=== PATIENT | female | born 2000 | race Caucasian/White ===

== ENCOUNTER → 2019-11-27 14:22 | Outpatient (BNVA) | payer SELFPAY | PROVIDERS: Family Provider Nurse Practitioner Family; Visit Provider Obstetrics & Gynecology | DX: E28.2 Polycystic ovarian syndrome (principal); N83.8 Other noninflammatory disorders of ovary, fallopian tube and broad ligament; N64.52 Nipple discharge | CPT/HCPCS: 83036; 84146; 84402; 84403; 84443; 85025 ==

== ENCOUNTER 2019-12-25 19:52 | Emergency (ER) | payer MEDICAID, SELFPAY ==
[2019-12-25 20:01] VITALS: BP 125/69; PULSE 90; RESP 14; TEMP 36.4; O2SAT 98; BMI 31.9
[2019-12-25 20:14] VITALS: BP 106/78; PULSE 98; RESP 16; O2SAT 97
--- NOTE | 2019-12-25 20:15 | US_ITS ---
WS: [id number] ULTRASOUND EARLY TECHNIQUE: Transabdominal sonography of the pelvis was performed. Followed by transvaginal sonography to better evaluate the uterus and ovaries. CLINICAL INFORMATION: Pain LMP: 11/13/2019 Beta hCG: Unknown. COMPARISON: None. FINDINGS: UTERUS AND GESTATIONAL SAC Intrauterine gestations: Single interuterine gestation with pole. Suggestion of bicornate uterine configuration with one horn containing gestational sac and adjacent horn containing echogenic debris likely hemorrhagic blood pro ducts. Presumed blood products measure 3.0 x 3.3 x 4.2 cm Estimated gestational age: 6w1d Yolk sac: 0.3 cm. [place] rump length (CRL): 0.5 cm. heart motion: 129 BPM. a OVARIES Right ovary: Normal. Left ovary: Normal. FREE FLUID None. 2. Estimated gestational age: 6w1d 3. 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 Recommend short interval follow-up for surveil latrice. 4. Normal adnexa. US/US OB <=14 wk fetus w transvag IMPRESSION: 1. Single live intrauterine .
--- NOTE | 2019-12-25 20:20 | W.ED.FEMALGU ---
HPI - Female Genitourinary General: Chief complaint: Vaginal Bleeding Stated complaint: bleeding/cramping preg Time Seen by Provider: 12/25/19 20:15 Source: patient Mode of arrival: ambulatory Limitations: no limitations History of Present Illness: HPI Narrative: Shana is a very nice 19-year-old female who comes in complaining of vaginal bleeding and being . Apparently the patient was seen at [facility] and referred here for ultrasound. The patient believes herself to be 3 to 5 weeks along by dates. She is having bleeding that just began this a.m. and is small in amount. No pelvic exam was done at the [facility]. Patient states he has had minimal if any pain. There is been no described associated nausea or vomiting, fevers or chills, urinary symptoms or otherwise. Associated symptoms: Deny abdominal pain, headache(s), nausea or syncope Related Data: : 1 Review of Systems Const: Denies: fever(s), chills, body aches, fatigue, malaise or diaphoresis Eyes: Denies: change in vision, blurry vision, photophobia, eye discomfort, eye discharge or eye redness ENMT: Denies: throat pain, odynophagia, hoarseness, swelling of lips/tongue, ear or mastoid pain, ear discharge, change in hearing or nasal discharge Card: Denies: chest pain, palpitations, irregular heart rhythm, edema, lightheadedness, syncope, pre-syncope, dyspnea on exertion or orthopnea Resp: Denies: dyspnea, productive cough, non-productive cough, wheezing, hemoptysis or chest congestion GI: Denies: abdominal pain, nausea, vomiting, hematemesis, coffee ground emesis, heartburn, diarrhea, constipation, GI cramping, hematochezia or melena : Denies: flank pain, dysuria, urinary frequency, urinary urgency or hematuria Musc: Denies: neck pain, back pain, extremity pain, extremity swelling, joint pain, joint swelling, joint redness, joint warmth or joint stiffness Skin/Breast: Denies: rash, pruritus, erythema or skin tenderness Neuro: Denies: headache(s), numbness in extremities, weakness in extremities, sensory changes, lack of coordination, difficulty walking, dizziness, vertigo, confusion, Slurred speech present or seizure-like activity Bentley/Lymph: Denies: easy bruising, easy bleeding, petechiae, purpura or enlarged lymph nodes All/Imm: Denies: urticaria, throat swelling, tongue swelling, facial swelling or acute wheezing PFSH ED PFSH: Medical History (Updated 12/25/19 @ 21:26 by Kaleigh Mayorga) No pertinent past medical history Denies: diabetes, asthma, hypertension, seizures, DVT/PE Primary care provider: JOVAN Santos PCOS (polycystic ovarian syndrome) Surgical History History of lung surgery When she was 6 months old she had exploratory chest surgery with 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 She currently denies any respiratory difficulties. History of right oophorectomy Reports that at the age of 28 days old she had a surgery to remove her entire right ovary as there was a large cyst on it. This was done in [facility] in 1999. The cyst was benign. Family History Grandfather Diabetes maternal Throat cancer maternal Family/Other Diabetes maternal uncle Denies family history of Cervical cancer Colon cancer Ovarian cancer Heart disease Hyperlipidemia Breast cancer Hypertension Uterine cancer Thyroid condition Stroke Social History (Updated 12/17/19 @ 11:58 by Sarah Menendez RN) Smoking and tobacco status: never smoked Alcohol intake: unknown Female Reproductive History: : 1 Physical Exam Const: COMMON NORMALS: no acute distress, patient oriented x3, no limitations, healthy appearing and well nourished GENERAL APPEARANCE: cooperative, well kempt and well developed HENMT: COMMON NORMALS: normocephalic, atraumatic, external ears normal, EAC's normal and Normal external nose present HEAD & SCALP: normal to inspection, normocephalic and atraumatic FACE & SINUS: normal facial exam and face symmetric NOSE: Normal external nose present and Normal nares present EXTERNAL EAR: Yes external ears normal EXTERNAL AUDITORY CANAL: EAC's normal MOUTH: Normal oral and palatal mucosa present, lip normal and tongue normal Eye: COMMON NORMALS: Equal, round and reactive pupils present and conjunctivae normal GENERAL EYE: appearance normal, both eyes and all related structures ALIGNMENT: Yes alignment normal PERIORBITAL: periorbital findings normal EYELID: eyelids normal CONJUNCTIVA: Yes conjunctivae normal SCLERA: sclerae normal PUPIL: Yes Equal, round and reactive pupils present Neck/C-Spine: COMMON NORMALS: full ROM, no lymphadenopathy, supple, no meningeal signs and no JVD GENERAL: Yes normal visual inspection and Yes trachea midline Chest: COMMONS NORMALS: normal inspection of the chest and normal palpation of entire chest wall Resp: COMMON NORMALS: normal respiratory effort, No retractions, No use of accessory muscles and clear to auscultation bilaterally EFFORT & INSPECTION: Yes able to speak in complete sentences and Yes symmetric chest movement AUSCULTATION: clear to auscultation bilaterally, no crackles, no rales, no rhonchi and no wheezes Cardio: COMMON NORMALS: no JVD, regular rate, regular rhythm, S1 normal heart sound present and S2 normal heart sound present RATE: regular rate RHYTHM: regular rhythm HEART SOUNDS: S1 normal heart sound present, S2 normal heart sound present, no click, no gallops, no murmurs, no rubs and abnormal split S2 GI: COMMON NORMALS: Soft to palpation and No hepatosplenomegaly present PALPATION: Yes Soft to palpation, No Tenderness to palpation present (GI), No Guarding due to palpation present (GI), No Rigid due to palpation, Yes No hepatosplenomegaly present, No Hernia present, No Palpable mass present and No Pulsatile mass present : COMMON NORMALS: Yes no CVA tenderness and Yes normal bimanual exam BLADDER/KIDNEY EXAM: Yes no CVA tenderness EXTERNAL FEMALE EXAM: No Hernia present and Yes other (Blood noticed on the outside of the vagina.) SPECULUM EXAM - VAGINA: Yes other (Mild vaginal bleeding without any evidence of tissue or clots.) SPECULUM EXAM - CERVIX: Yes Cervical os closed, Yes Cervical bleeding and No Cervical tenderness present BIMANUAL EXAM - VAGINA & UTERUS: Yes normal bimanual exam, Yes normal palpation, Yes normal palpation, No cervical motion tenderness and No Cervical tenderness present Back/Pelvis: COMMON NORMALS: no CVA tenderness, thoracic and lumbar spine normal to inspection, no thoracic nor lumbar tenderness and thoraco-lumbar ROM normal Extremity: COMMON NORMALS: normal to inspection, full ROM, capillary refill normal, no joint enlargement, no clubbing, cyanosis or edema and no calf tenderness Neuro: COMMON NORMALS: patient oriented x3, CN's II-XII intact bilaterally, moves all extremities, no focal motor deficits and no sensory deficits noted MENINGEAL SIGNS: Yes no meningeal signs SPEECH: speech normal Psych: COMMON NORMALS: mental status grossly normal, Normal thought process present, cooperative, normal affect, speech normal and activity/motor behavior normal APPEARANCE: Yes well kempt SPEECH: Yes normal speech THOUGHT PROCESS: Normal thought process present Skin: COMMON NORMALS: no rashes or lesions noted, turgor normal, no jaundice, no petechiae and no mottling GENERAL SKIN EXAM: no rashes or lesions noted and turgor normal Course Vital Signs: Vital signs: Vital Signs Temperature 97.6 F 12/25/19 20:01 Pulse Rate 94 12/25/19 22:15 Respiratory Rate 16 12/25/19 22:15 Blood Pressure 112/76 12/25/19 22:15 Pulse Oximetry 97 12/25/19 22:15 MDM - Female MDM Narrative: Medical decision making narrative: Shana is a nice 19-year-old female who comes in complaining of vaginal bleeding. Her cervix is closed on exam and ultrasound is reassuring except for the fact she has a bicornate uterus. I have reviewed this with Dr. Xiong and he states the patient can follow-up with him in the office and this is a risk for possible miscarriage but he will follow her clinically. The patient is relieved to hear that she does have a intrauterine . She will follow-up as directed. She understands return here if her symptoms change or worsen. We are waiting on her Rh type and we will review this before discharge. I did review the case with Dr. Xiong and he states that she can follow-up this week with the office with him as well. Lab Data: Attestation: I reviewed the patient's lab results. Labs: Lab Results 12/25/19 12/25/19 12/25/19 Range/Units 20:18 20:18 20:18 WBC 11.9 (4.5-13.0) 10^3/ uL RBC 4.35 (4.1-5.3) 10^6/u L Hgb 12.5 (11.5-15.3) g/dL Hct 39.0 (37.0-47.0) % MCV 89.7 (81-99) fL MCH 28.7 (28.0-34.0) pg MCHC 32.1 (30.0-36.0) g/dL RDW 13.6 (12.1-15.1) % Plt Count 327 (130-400) 10^3/c mm MPV 11.0 H (7.4-10.4) fL Neut % (Auto) 58.2 % Lymph % (Auto) 31.5 % Nance % (Auto) 7.7 % Eos % (Auto) 1.9 % Baso % (Auto) 0.4 % Neut # (Auto) 6.90 (1.8-8.0) 10^3/u L Lymph # (Auto) 3.7 (1.5-6.5) 10^3/u L Nance # (Auto) 0.9 (0.2-0.9) 10^3/u L Eos # (Auto) 0.2 (0.0-0.8) 10^3/u L Baso # (Auto) 0.1 (0.0-0.1) 10^3/u L Nucleated RBC % (a uto) 0 % Nucleated RBCs # 0.0 /100WBC Sodium 136 (136-145) mmol/L Potassium 3.8 (3.5-5.1) mmol/L Chloride 102 (98-107) mmol/L Carbon Dioxide 24 (22-29) mmol/L Anion Gap 13.8 (5-19) BUN 10 (6-20) mg/dL Creatinine 0.6 (0.5-0.9) mg/dL GFR Calculation 127.5 (90-130) mL/min Glucose 83 (65-115) mg/dL Calculated Osmolal ity 277 L (285-295) mOsm/k g Calcium 9.2 (8.5-10.5) mg/dL Total Bilirubin 0.2 (0.15-1.2) mg/dL AST 17 (0-32) U/L ALT 23 (0-33) U/L Alkaline Phosphata se 77 (35-105) IU/L Total Protein 6.6 (6.6-8.7) g/dL Albumin 4.3 (3.5-5.2) g/dL Globulin 2.3 (1.3-4.6) g/dL HCG, Qual Positive H (Negative) Ser , Nohemi i-Qnt mIU/mL Urine Color (Yellow) Urine Appearance (CLEAR) Urine pH (5-7) Ur Specific Gravit y (1.005-1.030) Urine Protein (Negative) Urine Glucose (UA) (Normal) Urine Ketones (Negative) Urine Blood (Negative) Urine Nitrate (Negative) Urine Bilirubin (NEGATIVE) Urine Urobilinogen (Negative) mg/dL Ur Leukocyte Elisa ase (Negative) Blood Type Rho(D) Type 12/25/19 12/25/19 12/25/19 Range/Units 20:18 20:20 20:37 WBC (4.5-13.0) 10^3/ uL RBC (4.1-5.3) 10^6/u L Hgb (11.5-15.3) g/dL Hct (37.0-47.0) % MCV (81-99) fL MCH (28.0-34.0) pg MCHC (30.0-36.0) g/dL RDW (12.1-15.1) % Plt Count (130-400) 10^3/c mm MPV (7.4-10.4) fL Neut % (Auto) % Lymph % (Auto) % Nance % (Auto) % Eos % (Auto) % Baso % (Auto) % Neut # (Auto) (1.8-8.0) 10^3/u L Lymph # (Auto) (1.5-6.5) 10^3/u L Nance # (Auto) (0.2-0.9) 10^3/u L Eos # (Auto) (0.0-0.8) 10^3/u L Baso # (Auto) (0.0-0.1) 10^3/u L Nucleated RBC % (a uto) % Nucleated RBCs # /100WBC Sodium (136-145) mmol/L Potassium (3.5-5.1) mmol/L Chloride (98-107) mmol/L Carbon Dioxide (22-29) mmol/L Anion Gap (5-19) BUN (6-20) mg/dL Creatinine (0.5-0.9) mg/dL GFR Calculation (90-130) mL/min Glucose (65-115) mg/dL Calculated Osmolal ity (285-295) mOsm/k g Calcium (8.5-10.5) mg/dL Total Bilirubin (0.15-1.2) mg/dL AST (0-32) U/L ALT (0-33) U/L Alkaline Phosphata se (35-105) IU/L Total Protein (6.6-8.7) g/dL Albumin (3.5-5.2) g/dL Globulin (1.3-4.6) g/dL HCG, Qual (Negative) Ser , [place]hem[place] i[place]Qnt 36870.00 mIU/mL Urine Color Yellow (Yellow) Urine Appearance Clear (CLEAR) Urine pH 5 (5-7) Ur Specific Gravit y 1.025 (1.005-1.030) Urine Protein Neg (Negative) Urine Glucose (UA) Norm (Normal) Urine Ketones Negative (Negative) Urine Blood Neg (Negative) Urine Nitrate Negative (Negative) Urine Bilirubin Neg (NEGATIVE) Urine Urobilinogen Norm (Negative) mg/dL Ur Leukocyte Elisa ase Negative (Negative) Blood Type O Positive Rho(D) Type Positive Imaging Data: US: My impression: Ultrasound pelvis, tech interpretation -bicornate uterus, and 1 horn a 6-week 1 day intrauterine with normal heart rate. Ovaries are normal. No free fluid. Cervix closed. Clot present in the other horn of the uterus. Discharge Plan Discharge Patient Disposition: Home Clinical Impression: Threatened Condition: Stable Prescriptions: No Action No Known Home Medications RF: 0 Discharge Orders: Discharge Order (Routine); Ordered 12/25/19 Ordered By: Kaleigh Mayorga Referrals: Julio Xiong MD [Physician] - 1-3 days Kennedy Cárdenas FNP [Family Provider] - Discharge Diet: Advance as tolerated Discharge Activity: Increase activity as tolerated Patient Instructions: Threatened Miscarriage (ED) Activity Restrictions/Additional Instructions: Please return to the ER immediately for any of the signs or symptoms listed on your discharge instruction sheets, worsening/changing of your symptoms, you are not getting better as quickly as expected, or for ANY other cause or concerns. Be certain to follow-up with Dr. Xiong in his clinic as soon as possible for recheck. If your vaginal bleeding becomes more severe, you feel dizzy or lightheaded, you pass out or nearly pass out, or you have any other concerns please return to the ER immediately for recheck. Discharge Date/Time: 12/25/19 22:19 Coding Level of Care Code ED Maintenance Mechanic 2Nd Shift for Chg Fwd Exam Comprehensive
[2019-12-25 20:37] LABS: Basophils # 0.1 10^3/uL (0.0-0.1); Basophils % 0.4 %; Eosinophils # 0.2 10^3/uL (0.0-0.8); Eosinophils % 1.9 %; Hemoglobin 12.5 g/dL (11.5-15.3); Lymphocytes # 3.7 10^3/uL (1.5-6.5); Lymphocytes % 31.5 %; Mean Corpuscular HGB Conc 32.1 g/dL (30.0-36.0); Mean Corpuscular Hemoglobin 28.7 pg (28.0-34.0); Mean Corpuscular Volume 89.7 fL (81-99); Monocytes # 0.9 10^3/uL (0.2-0.9); Monocytes % 7.7 %; Neutrophils % 58.2 %; Nucleated Red Blood Cells % 0 %; Platelet Count 327 10^3/cmm (130-400); Red Blood Count 4.35 10^6/uL (4.1-5.3); Red Cell Distribution Width 13.6 % (12.1-15.1); White Blood Count 11.9 10^3/uL (4.5-13.0)
[2019-12-25 20:51] LABS: Alanine Aminotransferase 23 U/L (0-33); Albumin Level 4.3 g/dL (3.5-5.2); Alkaline Phosphatase 77 IU/L (35-105); Anion Gap 13.8 (5-19); Aspartate Amino Transferase 17 U/L (0-32); Blood Urea Nitrogen 10 mg/dL (6-20); Calcium 9.2 mg/dL (8.5-10.5); Carbon Dioxide 24 mmol/L (22-29); Chloride 102 mmol/L (98-107); Globulin 2.3 g/dL (1.3-4.6); Glomerular Filtration Rate 127.5 mL/min (90-130); Glucose 83 mg/dL (65-115); Osmolality Calculated 277 mOsm/kg (285-295); Potassium 3.8 mmol/L (3.5-5.1); Sodium 136 mmol/L (136-145); Total Bilirubin 0.2 mg/dL (0.15-1.2); Total Protein 6.6 g/dL (6.6-8.7)
[2019-12-25 21:01] LABS: HCG, Serum Qual Positive (Negative)
[2019-12-25 21:08] LABS: Add Urine Microscopic? NO
[2019-12-25 21:17] LABS: Bilirubin Urine Neg (NEGATIVE); Blood Urine Neg (Negative); Glucose Urine UA Norm (Normal); Ketones Urine Negative (Negative); Leukocyte Esterase Urine Negative (Negative); Nitrate Urine Negative (Negative); Protein Urine Neg (Negative); Specific Gravity, Urine 1.025 (1.005-1.030); Urine Appearance Clear (CLEAR); Urine Color Yellow (Yellow); Urobilinogen Urine Norm (Negative); pH Urine 5 (5-7)
[2019-12-25 21:54] VITALS: RESP 16
[2019-12-25 22:15] VITALS: BP 112/76; PULSE 94; RESP 16; O2SAT 97
--- NOTE | 2019-12-26 12:15 | DCPLANNER ---
branch operations manager had message to schedule a follow up appointment for patient with [facility]. Patient has a follow up appointment scheduled for Monday. December 31, 2019 at 1:[address] Bauer. Clinic will call patient with appointment information.
--- NOTE | 2020-02-06 07:54 | DCPLANNER ---
Patient had an appointment scheduled for 12.31.19 with [facility] - patient did attend the appointment.
== END 2019-12-25 22:19 | disposition home or self-care (01) ==
PROVIDERS: Nurse Practitioner Family; Emergency Provider Emergency Medicine; Family Provider Nurse Practitioner Family
DX: O20.0 Threatened abortion (principal); Z3A.01 Less than 8 weeks gestation of pregnancy
CPT/HCPCS: 12345; 76801; 76817; 80053; 81003; 84702; 84703; 85025; 86900; 87210; 87491; 87591; 99283

== ENCOUNTER → 2019-12-31 12:50 | Outpatient (BNVA) | payer MEDICAID, SELFPAY | PROVIDERS: Family Provider Nurse Practitioner Family; Visit Provider Obstetrics & Gynecology | DX: O20.0 Threatened abortion (principal) | CPT/HCPCS: 81025 ==

== ENCOUNTER → 2020-01-14 11:10 | Outpatient (BNVA) | payer MEDICAID, SELFPAY | PROVIDERS: Family Provider Nurse Practitioner Family; Visit Provider Nurse Practitioner Women's Health | DX: O34.00 Maternal care for unspecified congenital malformation of uterus, unspecified trimester (principal); Q51.3 Bicornate uterus; E28.2 Polycystic ovarian syndrome; O99.281 Endocrine, nutritional and metabolic diseases complicating pregnancy, first trimester; Z3A.09 9 weeks gestation of pregnancy | CPT/HCPCS: 81000 ==

== ENCOUNTER 2020-01-16 02:41 | Emergency (ER) | payer MEDICAID, SELFPAY ==
[2020-01-16 02:42] VITALS: BP 137/96; PULSE 88; RESP 16; TEMP 36.7; O2SAT 99; BMI 31.9
--- NOTE | 2020-01-16 02:47 | US_ITS ---
WS: [id number] EARLY OBSTETRICAL ULTRASOUND (<14 WEEKS). HISTORY: threatened miscarriage COMPARISON: 12/25/2019 Previously described intrauterine gestation is no longer present. There is thickening of the endometr ium. No residual fluid collection along the central endometrial canal. No pole or cardiac tube deep. There is mixed heterogeneous debris along the cervix and endometrial canal. No free fluid. Both ovaries are identified with normal vascularity. US/US OB <= 14 weeks fetus [id number] IMPRESSION: 1. Spontaneous since 12/25/2019. 2. Residual products of the conception along the endometrium and endocervical canal.
[2020-01-16 02:54] VITALS: BP 130/89; PULSE 101; RESP 18; O2SAT 99
--- NOTE | 2020-01-16 02:55 | ED_ITS ---
HPI - General: Chief complaint: Vaginal Bleeding Stated complaint: MISCARRIAGE Time Seen by Provider: 01/16/20 02:43 Source: patient and EMS Mode of arrival: EMS Limitations: no limitations History of Present Illness: HPI Narrative: 19-year-old female who is currently 9 weeks . Patient is G1, P0. Patient states started having some bleeding yesterday got much heavier today. Was patient was seen at [facility] I talked physician there and states he removed what he believes to be clot and products from her cervix. Patient states her bleeding is lessened greatly since then. Patient transferred here as they do not have ultrasound capabilities. Patient denies any pain her blood pressure here is stable. Date of Last Menstrual Period: 11/10/19 Associated symptoms: Deny abdominal pain, headache(s), nausea or vomiting Related Data: : 1 Review of Systems Const: Denies: fever(s), chills, body aches or change in appetite Eyes: Denies: blurry vision or eye discomfort ENMT: Denies: throat pain or dental pain Card: Denies: chest pain Resp: Denies: dyspnea GI: Denies: abdominal pain, nausea, vomiting or diarrhea : Reports: vaginal bleeding Musc: Denies: neck pain or back pain Skin/Breast: Denies: rash Neuro: Denies: headache(s) Psych: Denies: depression Bentley/Lymph: Denies: easy bruising All/Imm: Denies: urticaria PFSH ED PFSH: Medical History No pertinent past medical history Denies: diabetes, asthma, hypertension, seizures, DVT/PE Primary care provider: JOVAN Santos PCOS (polycystic ovarian syndrome) Surgical History History of lung surgery When she was 6 months old she had exploratory chest surgery with 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 She currently denies any respiratory difficulties. History of right oophorectomy Reports that at the age of 28 days old she had a surgery to remove her entire right ovary as there was a large cyst on it. This was done in [facility] in 1999. The cyst was benign. Family History Grandfather Diabetes maternal Throat cancer maternal Family/Other Diabetes maternal uncle Denies family history of Cervical cancer Colon cancer Ovarian cancer Heart disease Hyperlipidemia Breast cancer Hypertension Uterine cancer Thyroid condition Stroke Social History Smoking and tobacco status: never smoked Alcohol intake: unknown Female Reproductive History: Date of last menstrual period: 11/10/19 Gr avida: 1 Physical Exam Const: COMMON NORMALS: no acute distress, patient oriented x3 and healthy appearing HENMT: COMMON NORMALS: normocephalic and atraumatic HEAD & SCALP: normocephalic and atraumatic Eye: COMMON NORMALS: Equal, round and reactive pupils present and EOMs intact bilaterally PUPIL: Yes Equal, round and reactive pupils present Neck/C-Spine: COMMON NORMALS: full ROM and supple Chest: COMMONS NORMALS: normal inspection of the chest and normal palpation of entire chest wall Resp: COMMON NORMALS: normal respiratory effort, No retractions, No use of accessory muscles and clear to auscultation bilaterally AUSCULTATION: clear to auscultation bilaterally Cardio: COMMON NORMALS: regular rate, regular rhythm and No murmurs present (Cardio) RATE: regular rate RHYTHM: regular rhythm GI: COMMON NORMALS: Normal to inspection, nondistended, normoactive bowel sounds present, Soft to palpation, non-tender and no masses PALPATION: Yes Soft to palpation Extremity: COMMON NORMALS: normal to inspection and full ROM Neuro: COMMON NORMALS: patient oriented x3, moves all extremities and no focal motor deficits Psych: COMMON NORMALS: mental status grossly normal, Normal thought process present and cooperative THOUGHT PROCESS: Normal thought process present Skin: COMMON NORMALS: no rashes or lesions noted and no wounds GENERAL SKIN EXAM: no rashes or lesions noted Course Vital Signs: Vital signs: Vital Signs Temperature 98.1 F 01/16/20 02:42 Pulse Rate 99 01/16/20 04:43 Respiratory Rate 17 01/16/20 04:43 Blood Pressure 121/78 01/16/20 04:43 Pulse Oximetry 100 01/16/20 04:43 MDM - OB/Uterine Contractions MDM Narrative: Medical decision making narrative: Who presents here with a miscarriage. Patient's ultrasound here showed no IUP with clot. Patient states her bleeding is improved greatly and she has had no more bleeding here. Patient's vital signs been stable here. Patient given misoprostol here. Patient states she would like to go home I feel she is stable for discharge. She is to follow-up with her ICER MACHINE in 1 to 2 days and informed her if her bleeding worsens or she has any lightheadedness she is to return immediately. She understands agrees to plan. Lab Data: Labs: Lab Results 01/16/20 Range/Units 02:57 Hgb 10.2 L (11.5-15.3) g/dL Hct 30.9 L (37.0-47.0) % Discharge Plan Discharge Patient Disposition: Home Clinical Impression: Miscarriage Condition: Stable Prescriptions: No Action prenat.vits,dalila,[id number] Tablet 1 tab PO DAILY RF: 0 Discharge Orders: Discharge Order (Routine); Ordered 01/16/20 Ordered By: Nabil Crowell Referrals: Daniele Garcia MD [Physician] - 1-3 days Kennedy Cárdenas FNP [Family Provider] - Discharge Diet: Advance as tolerated Discharge Activity: Resume usual activity Patient Instructions: Spontaneous Miscarriage (ED) Coding Level of Care Code ED Flood Control Engineer for Chg Fwd Exam Comprehensive
[2020-01-16 03:06] LABS: Hematocrit 30.9 % (37.0-47.0); Hemoglobin 10.2 g/dL (11.5-15.3)
[2020-01-16 03:21] VITALS: BP 128/83; O2SAT 99
--- NOTE | 2020-01-16 03:21 | PC.NURSE ---
ULTRASOUND IN ROOM
[2020-01-16] MEDS: miSOPROStol 200 mcg Tablet 600 MCG PO (03:45)
[2020-01-16 03:47] VITALS: BP 126/89; PULSE 97; RESP 16; O2SAT 100
[2020-01-16 04:00] VITALS: BP 137/84; O2SAT 100
[2020-01-16 04:43] VITALS: BP 121/78; PULSE 99; RESP 17; O2SAT 100
== END 2020-01-16 07:04 | disposition home or self-care (01) ==
PROVIDERS: Emergency Provider Emergency Medicine; Family Provider Nurse Practitioner Family
DX: O03.9 Complete or unspecified spontaneous abortion without complication (principal)
CPT/HCPCS: 12345; 76801; 85014; 85018; 99283

== ENCOUNTER → 2023-02-27 16:18 | Outpatient (BNVA) | payer OTHER, SELFPAY | PROVIDERS: Family Provider Nurse Practitioner Family; Visit Provider Registered Nurse | DX: E28.2 Polycystic ovarian syndrome (principal); R55 Syncope and collapse; Z72.0 Tobacco use | CPT/HCPCS: 80053; 84403; 84443; 85025 ==

== ENCOUNTER → 2023-07-31 11:54 | Outpatient (BNVA) | payer OTHER, SELFPAY | PROVIDERS: Family Provider Nurse Practitioner Family; PCP Registered Nurse; Visit Provider Registered Nurse | DX: Z20.2 Contact with and (suspected) exposure to infections with a predominantly sexual mode of transmission (principal) | CPT/HCPCS: 87491; 87591 ==

== ENCOUNTER → 2024-02-07 09:28 | Outpatient (BNVA) | payer OTHER, SELFPAY | PROVIDERS: Family Provider Nurse Practitioner Family; PCP Registered Nurse; Visit Provider Registered Nurse | DX: Z01.419 Encounter for gynecological examination (general) (routine) without abnormal findings (principal); Z78.9 Other specified health status; E28.2 Polycystic ovarian syndrome | CPT/HCPCS: 82157; 84403; 84443; 85025; 87070; 87205; 87491; 87591; 87661; 88175 ==

== ENCOUNTER 2024-03-27 09:45 | Outpatient (CLI) | payer OTHER, SELFPAY ==
--- NOTE | 2024-03-27 09:45 | US_ITS ---
WS: [id number] US pelv w/transvag [id number] HISTORY: E28.2 - Polycystic ovarian syndrome COMPARISON: 04/26/2018 Uterus: 5.5 cm x 3.8 cm x 3.1 cm. Uterus is retroverted on transvaginal imaging. Normal appearance of the myometrium. Endometrium: 0.6 cm. Normal. Right ovary: Prior RIGHT oophorectomy. No adnexal mass. Left ovary: 4.6 cm x 3.3 cm x 4.0 cm. Mildly enlarged ovary. There are multiple small follicles of si milar size throughout the ovary. Majority of these follicles are in a peripheral distribution. Normal vascularity. Small amount of physiologic free fluid in the cul-de-sac. US/US pelv w/transvag [id number] IMPRESSION: 1. Normal uterus and endometrium. 2. Prior RIGHT oophorectomy. 3. LEFT ovary ultrasound appearance consistent with PCOS.
== END 2024-03-27 09:46 | disposition home or self-care (01) ==
LOC: RAD 09:47
PROVIDERS: Family Provider Nurse Practitioner Family; PCP Registered Nurse; Visit Provider Registered Nurse
DX: E28.2 Polycystic ovarian syndrome (principal); Z90.721 Acquired absence of ovaries, unilateral
CPT/HCPCS: 76830; 76856

== ENCOUNTER → 2024-04-18 07:54 | Outpatient (BNVA) | payer OTHER, SELFPAY | PROVIDERS: Family Provider Nurse Practitioner Family; PCP Registered Nurse; Visit Provider Registered Nurse | DX: Z20.2 Contact with and (suspected) exposure to infections with a predominantly sexual mode of transmission (principal); N92.6 Irregular menstruation, unspecified | CPT/HCPCS: 81025; 87491; 87591; 87661 ==